=== PATIENT | female | born 1980 | race American Indian/Alaskan Native ===

== ENCOUNTER 2016-04-29 21:24 | Emergency (ER) | payer OTHER ==
[2016-04-29 22:28] LABS: Basophils % (Auto) 0.4 % (0.0-1.8); Eosinophils % (Auto) 0.2 % (0.0-4.3); Hematocrit 37.1 % (30.3-42.9); Hemoglobin 12.3 gm/dl (10.1-14.3); Mean Corpuscular HGB Conc 33 % (30-34); Mean Corpuscular Hemoglobin 30 pg (28-32); Mean Corpuscular Volume 89 fl (79-97); Platelet Count 359 K/mm3 (140-440); Red Blood Count 4.17 M/mm3 (3.65-5.03); Red Cell Distribution Width 12.2 % (13.2-15.2); White Blood Count 8.4 K/mm3 (4.5-11.0)
[2016-04-29 22:54] LABS: Anion Gap 20 mmol/L; BUN/Creatinine Ratio 13.33; Blood Urea Nitrogen 8 mg/dL (7-17); Calcium 9.5 mg/dL (8.4-10.2); Carbon Dioxide 22 mmol/L (22-30); Chloride 98.9 mmol/L (98-107); Creatine Kinase 104 units/L (30-135); Glucose 111 mg/dL (65-100); Potassium 3.9 mmol/L (3.6-5.0); Sodium 137 mmol/L (137-145)
[2016-04-29 22:55] LABS: Creatine Kinase MB < 1.0 ng/mL (0.0-4.0)
[2016-04-30] MEDS ORDERED: NACL 0.9% 1000 ML 1,000 ML IV ONE (02:21)
[2016-04-30 03:08] LABS: INR 1.08 (0.87-1.13)
[2016-04-30] MEDS ORDERED: TORADOL IV ONE (03:56)
[2016-04-30] MEDS ORDERED: TYLENOL PO ONE (03:56)
--- NOTE | 2016-04-30 03:57 | Emergency Department Report ---
ED General Adult HPI - General Chief complaint: Chest Pain Stated complaint: CHEST PAIN / EAR PAIN Time Seen by Provider: 04/30/16 03:45 Source: patient, RN notes reviewed Mode of arrival: Ambulatory Limitations: No Limitations - History of Present Illness Initial comments: This is a 35-year-old female. She is previously unknown to me. Primary care doctor is with [facility]. Has no chronic medical conditions. Does not take control tablets. No history of cocaine use. No recent aspirin use. Patient presents to the ER with right-sided chest wall pain. The pain has been present since morning. It is constant. It does not radiate to the back, arms or neck. There is no vomiting or diaphoresis. Positive cough, positive mucus production, positive shortness of breath, positive right-sided ear pain. Patient has no tinnitus, no vertigo, no change in auditory acuity. -: Gradual Location: chest Radiation: non-radiation Severity scale (0 -10): 4 Quality: aching Consistency: constant Improves with: rest Worsens with: movement Associated Symptoms: chest pain, cough, shortness of breath - Related Data Previous Rx's Medication Instructions Recorded Last Taken Type Ketorolac [Toradol] 10 mg PO Q6H PRN #20 tablet 04/30/16 Unknown Rx Allergies Allergy/AdvReac Type Severity Reaction Status Date / Time codeine Allergy Swelling Verified 04/29/16 21:42 ED Review of Systems ROS: Stated complaint: CHEST PAIN / EAR PAIN Other details as noted in HPI Constitutional: malaise Eyes: denies: vision change ENT: congestion Respiratory: cough, shortness of breath Cardiovascular: chest pain Gastrointestinal: denies: vomiting Genitourinary: denies: urgency, dysuria Musculoskeletal: arthralgia, myalgia Skin: as per HPI Neurological: as per HPI Psychiatric: as per HPI ED Past Medical Hx - Past Medical History Previous Medical History?: No - Surgical History Past Surgical History?: No - Social History Smoking Status: Never Smoker Substance Use Type: None - Medications Home Medications: Home Medications Medication Instructions Recorded Confirmed Last Taken Type Ketorolac [Toradol] 10 mg PO Q6H PRN #20 tablet 04/30/16 Unknown Rx ED Physical Exam - General Limitations: No Limitations General appearance: alert, in no apparent distress - Head Head exam: Present: atraumatic, normocephalic - Eye Eye exam: Present: normal appearance, PERRL, EOMI. Absent: nystagmus - ENT ENT exam: Present: normal exam, normal orophraynx, mucous membranes moist, TM's normal bilaterally, normal external ear exam, other (there is no mastoid tenderness. No vesicles noted.) - Neck Neck exam: Present: normal inspection, full ROM. Absent: tenderness, meningismus - Respiratory Respiratory exam: Present: normal lung sounds bilaterally, chest wall tenderness , other (is reproducible anterior chest wall tenderness. The breast exam is nontender. Breast examination, I am escorted by ER milking machine technician Daniella Jimenez) . Absent: respiratory distress, wheezes, rales, rhonchi, stridor, decreased breath sounds - Cardiovascular Cardiovascular Exam: Present: regular rate, normal rhythm, normal heart sounds. Absent: bradycardia, tachycardia, irregular rhythm, systolic murmur, diastolic murmur, rubs, gallop - GI/Abdominal GI/Abdominal exam: Present: soft, normal bowel sounds. Absent: distended, tenderness, guarding, rebound, rigid, pulsatile mass - Extremities Exam Extremities exam: Present: normal inspection, full ROM, normal capillary refill. Absent: tenderness, pedal edema, joint swelling, calf tenderness - Back Exam Back exam: Present: normal inspection, full ROM. Absent: tenderness, CVA tenderness (R), CVA tenderness (L), muscle spasm, paraspinal tenderness, vertebral tenderness - Neurological Exam Neurological exam: Present: alert, oriented X3, normal gait, other (Extraocular movements intact. Tongue midline. No facial droop. Facial sensation intact to light touch in the V1, V2, V3 distribution bilaterally. 5 and 5 strength in 4 extremities.. Sensation is intact to light touch in 4 extremities.). Absent : motor sensory deficit - Psychiatric Psychiatric exam: Present: normal affect, normal mood - Skin Skin exam: Present: warm, dry, intact, normal color. Absent: rash ED Course Vital Signs 04/29/16 04/30/16 04/30/16 21:42 01:45 01:54 Temperature 99.5 F 98.9 F Pulse Rate 119 H 125 H Respiratory 20 20 Rate Blood Pressure 125/84 122/84 [Right] O2 Sat by Pulse 100 98 98 Oximetry 04/30/16 04/30/16 04/30/16 02:30 03:00 03:30 Temperature Pulse Rate 108 H 100 H 95 H Respiratory 18 16 18 Rate Blood Pressure 113/94 107/60 116/73 [Right] O2 Sat by Pulse 98 98 98 Oximetry 04/30/16 04:00 Temperature 98.8 F Pulse Rate 92 H Respiratory 18 Rate Blood Pressure 124/76 [Right] O2 Sat by Pulse 100 Oximetry - Reevaluation(s) Reevaluation #1: 04/30/16 04:37 Differential diagnosis: Costochondritis, pneumonia, bronchitis, upper respiratory tract infection Assessment and plan: 35-year-old female with clinical bronchitis and viral syndrome. Low-grade temperature and tachycardic initially. Chest pain clinically unlikely to be acute coronary syndrome. She is low risk by RYANNE score, low risk by heart score, has multiple negative cardiac enzymes. Has a pulmonary embolus or DVT risk factors, is low risk by well's criteria. Her tachycardia improved with IV fluids and nonsteroidal pain medication. Her pain improved with nonsteroidal pain medication. Patient at low risk for major illness cardiac event. She will be discharged with nonnarcotic pain medication , instructions to follow up with outpatient primary care. X-ray of the chest unremarkable. ED Medical Decision Making - Lab Data Result diagrams: 04/29/16 21:59 04/29/16 21:59 Vital Signs 04/29/16 04/30/16 04/30/16 21:42 01:45 01:54 Temperature 99.5 F 98.9 F Pulse Rate 119 H 125 H Respiratory 20 20 Rate Blood Pressure 125/84 122/84 [Right] O2 Sat by Pulse 100 98 98 Oximetry 04/30/16 04/30/16 04/30/16 02:30 03:00 03:30 Temperature Pulse Rate 108 H 100 H 95 H Respiratory 18 16 18 Rate Blood Pressure 113/94 107/60 116/73 [Right] O2 Sat by Pulse 98 98 98 Oximetry 04/30/16 04:00 Temperature 98.8 F Pulse Rate 92 H Respiratory 18 Rate Blood Pressure 124/76 [Right] O2 Sat by Pulse 100 Oximetry Lab Results 04/29/16 04/29/16 04/29/16 Range/Units 21:59 21:59 21:59 WBC 8.4 (4.5-11.0) K/mm3 RBC 4.17 (3.65-5.03) M/mm3 Hgb 12.3 (10.1-14.3) gm/dl Hct 37.1 (30.3-42.9) % MCV 89 (79-97) fl MCH 30 (28-32) pg MCHC 33 (30-34) % RDW 12.2 L (13.2-15.2) % Plt Count 359 (140-440) K/mm3 Lymph % (Auto) 5.0 L (13.4-35.0) % [place] % (Auto) 6.0 (0.0-7.3) % Eos % (Auto) 0.2 (0.0-4.3) % Baso % (Auto) 0.4 (0.0-1.8) % Lymph # 0.4 L (1.2-5.4) K/mm3 [place] # 0.5 (0.0-0.8) K/mm3 Eos # 0.0 (0.0-0.4) K/mm3 Baso # 0.0 (0.0-0.1) K/mm3 Seg Neutrophils % 88.4 H (40.0-70.0) % Seg Neutrophils # 7.4 (1.8-7.7) K/mm3 PT (12.2-14.9) Sec. INR (0.87-1.13) Sodium 137 (137-145) mmol/L Potassium 3.9 (3.6-5.0) mmol/L Chloride 98.9 (98-107) mmol/L Carbon Dioxide 22 (22-30) mmol/L Anion Gap 20 mmol/L BUN 8 (7-17) mg/dL Creatinine 0.6 L (0.7-1.2) mg/dL Estimated GFR > 60 ml/min BUN/Creatinine Ratio 13.33 % Glucose 111 H (65-100) mg/dL Calcium 9.5 (8.4-10.2) mg/dL Total Creatine Kinase 104 (30-135) units/L CK-MB (CK-2) < 1.0 (0.0-4.0) ng/mL CK-MB (CK-2) Rel Index 0.9 (0-4) Troponin T < 0.010 (0.00-0.029) ng/mL HCG, Qual Negative (Negative) 04/30/16 04/30/16 Range/Units 00:32 02:33 WBC (4.5-11.0) K/mm3 RBC (3.65-5.03) M/mm3 Hgb (10.1-14.3) gm/dl Hct (30.3-42.9) % MCV (79-97) fl MCH (28-32) pg MCHC (30-34) % RDW (13.2-15.2) % Plt Count (140-440) K/mm3 Lymph % (Auto) (13.4-35.0) % [place] % (Auto) (0.0-7.3) % Eos % (Auto) (0.0-4.3) % Baso % (Auto) (0.0-1.8) % Lymph # (1.2-5.4) K/mm3 [place] # (0.0-0.8) K/mm3 Eos # (0.0-0.4) K/mm3 Baso # (0.0-0.1) K/mm3 Seg Neutrophils % (40.0-70.0) % Seg Neutrophils # (1.8-7.7) K/mm3 PT 13.9 (12.2-14.9) Sec. INR 1.08 (0.87-1.13) Sodium (137-145) mmol/L Potassium (3.6-5.0) mmol/L Chloride (98-107) mmol/L Carbon Dioxide (22-30) mmol/L Anion Gap mmol/L BUN (7-17) mg/dL Creatinine (0.7-1.2) mg/dL Estimated GFR ml/min BUN/Creatinine Ratio % Glucose (65-100) mg/dL Calcium (8.4-10.2) mg/dL Total Creatine Kinase (30-135) units/L CK-MB (CK-2) (0.0-4.0) ng/mL CK-MB (CK-2) Rel Index (0-4) Troponin T < 0.010 (0.00-0.029) ng/mL HCG, Qual (Negative) - EKG Data When compared to previous EKG there are: previous EKG unavailable 04/30/16 04:38 sinus tachycardia, 119 bpm, shortened AK interval, normal axis, not morphologically consistent with STEMI. - Radiology Data Radiology results: pending Critical care attestation.: If time is entered above; I have spent that time in minutes in the direct care of this critically ill patient, excluding procedure time. ED Disposition Clinical Impression: Chest wall pain Disposition: DISCHARGED TO HOME OR SELFCARE Is pt being admited?: No Does the pt Need Aspirin: No Condition: Stable Instructions: Chest Pain (ED), Costochondritis (ED) Additional Instructions: Rest and avoid heavy lifting. Avoid strenuous physical activity. Follow-up with the primary care doctor or validation specialist within the next week. Dr. Bucio is a local validation specialist. Return to the ER right away with new pain, worsening pain, migration of pain, fevers or chills, intractable nausea or vomiting, inability to tolerate liquid feeds. Symptoms most likely coming from inflamed musculature in the anterior chest wall. Referrals: ULISES MILES MD [Primary Care Provider] - 3-5 Days ELENO BUCIO MD [Staff Physician] - 3-5 Days
[2016-04-30 04:06] VITALS: BP 124/76
--- NOTE | 2016-04-30 07:28 | XRay Report ---
ROUTINE CHEST, TWO VIEWS: HISTORY: chest pain. The trachea, heart, mediastinal contour, lung guallpa and bony thorax are unremarkable. IMPRESSION: Unremarkable chest x-ray.
== END 2016-04-30 05:00 | disposition home or self-care (01) ==
LOC: ED 21:24
DX: R07.89 Other chest pain (principal); Z88.6 Allergy status to analgesic agent
CPT/HCPCS: 36415; 71020; 80048; 82550; 82553; 84484; 84703; 85025; 85610; 93005; 93010; 96361; 96374; 99285; J1885; J7030

== ENCOUNTER 2018-11-10 15:07 | Outpatient (CLI) | payer SELFPAY ==
[2018-11-10 15:59] LABS: Bacteria,Urine 1+ /HPF (Negative); Bilirubin,Urine NEG (Negative); Blood,Urine NEG (Negative); Color,Urine Colorless (Yellow); Protein,Urine <15 mg/dL mg/dL (Negative); RBC,Urine < 1.0 /HPF (0.0-6.0); Urobilinogen,Urine < 2.0 mg/dL (<2.0); WBC,Urine < 1.0 /HPF (0.0-6.0)
[2018-11-10] MEDS ORDERED: LACTATED RINGERS 1,000 ML IV SCH (16:00)
[2018-11-10 16:17] LABS: Hematocrit 30.5 % (30.3-42.9); Hemoglobin 10.4 gm/dl (10.1-14.3); Mean Corpuscular HGB Conc 34 % (30-34); Mean Corpuscular Volume 93 fl (79-97); Platelet Count 373 K/mm3 (140-440); Red Blood Count 3.29 M/mm3 (3.65-5.03); Red Cell Distribution Width 12.5 % (13.2-15.2)
[2018-11-10 16:37] LABS: Alanine Aminotransferase 16 units/L (7-56); Albumin 3.7 g/dL (3.9-5); BUN/Creatinine Ratio 12; Blood Urea Nitrogen 6 mg/dL (7-17); Calcium 9.1 mg/dL (8.4-10.2); Hemolysis Index 5
[2018-11-10 17:13] VITALS: BP 131/72
== END 2018-11-10 18:02 | disposition home or self-care (01) ==
LOC: TRG 15:07
PROVIDERS: ATTEND Obstetrics & Gynecology
DX: O9A.212 Injury, poisoning and certain other consequences of external causes complicating pregnancy, second trimester (principal); T67.5XXA Heat exhaustion, unspecified, initial encounter; O60.02 Preterm labor without delivery, second trimester; O13.2 Gestational [pregnancy-induced] hypertension without significant proteinuria, second trimester; Z3A.24 24 weeks gestation of pregnancy
CPT/HCPCS: 36415; 59025; 80053; 81001; 85027; 96360; J7120

== ENCOUNTER 2019-01-24 13:25 | Inpatient (IN) | payer MEDICAID ==
[2019-01-24] MEDS: LACTATED RINGERS 1,000 ML IV SCH (13:30)
[2019-01-24] MEDS ORDERED: DOCUSATE SODIUM 100 MG CAP PO PRN (13:58)
[2019-01-24] MEDS ORDERED: diphenhydrAMINE 25 MG CAP PO PRN (13:58)
[2019-01-24] MEDS ORDERED: ACETAMINOPHEN 325 MG TAB PO PRN (13:58)
[2019-01-24] MEDS ORDERED: SIMETHICONE 80 MG CHEW TAB PO PRN (13:58)
[2019-01-24] MEDS ORDERED: ONDANSETRON 4 MG/2 ML INJ IV PRN (13:58)
[2019-01-24] MEDS ORDERED: BETAMET ACET/BETAMET NA PH 6 MG/ML INJ 5 ML MDV IM SCH (14:00)
[2019-01-24 15:28] LABS: Basophils # (Auto) 0.1 K/mm3 (0.0-0.1); Eosinophils # (Auto) 0.3 K/mm3 (0.0-0.4); Eosinophils % (Auto) 3.4 % (0.0-4.3); Hemoglobin 10.5 gm/dl (10.1-14.3); Lymphocytes % (Auto) 26.4 % (13.4-35.0); Mean Corpuscular HGB Conc 33 % (30-34); Mean Corpuscular Volume 92 fl (79-97); Monocytes # (Auto) 0.5 K/mm3 (0.0-0.8); Monocytes % (Auto) 7.2 % (0.0-7.3); Platelet Count 248 K/mm3 (140-440); Red Blood Count 3.48 M/mm3 (3.65-5.03)
[2019-01-24 15:43] LABS: Alanine Aminotransferase 9 units/L (7-56); Uric Acid 4.4 mg/dL (3.5-7.6)
--- NOTE | 2019-01-24 17:37 | Ultrasound Report ---
Limited OB Ultrasound BPP Umbilical artery evaluation HISTORY: IUP at 35 wks, gestational hypertension. TECHNIQUE: Grayscale and color Doppler imaging performed. COMPARISON: None FINDINGS: There is a single viable intrauterine gestation which is cephalic in presentation with hear t rate of 166 bpm. Overall EGA by ultrasound is 34 weeks and 3 days with estimated delivery date of . Estimated weight is 2373 g. The MARIA EUGENIA is 6 cm. On BPP, the fetus received a score of 2 out of 2 for breathing, movement, posture/tone, and MARIA EUGENIA. Tota l score was 8 out of 8. On evaluation of the umbilical artery, 3 free loops of umbilical cord were evaluated and the heart ra te was 159 bpm. The systolic to diastolic ratio average was 2.4 which is within normal limits. Normal waveforms were present with persistent blood flow during systole. The resistive index averages was 0 .6 with normal persistent waveforms. IMPRESSION: 1. Single viable intrauterine gestation as above. 2. MARIA EUGENIA of 6 cm. 3. Normal BPP. 4. Normal umbilical arterial evaluation. Signer Name: Angelo Mills MD Signed: 01/24/2019 5:32 PM Workstation Name: [id number]
--- NOTE | 2019-01-24 23:49 | History and Physical Report ---
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 Her blood pressure was checked and reported to be 200/100 so she presented here. While in triage, her BP's have been primarily 120-150/80-100s. She denies headache, blurry vision or RUQ pain. She has had care at [facility] since 11 wks with comanagement by [facility] secondary to advanced maternal age, genital herpes without lesion or prodrome presently, Rubella equivocal status, anemia on iron supplementation. She has a history of one prior . Her GBS status is unknown. Past History Past Medical History: hematologic disorders (Anemia ) Past Surgical History: section [employer] History: herpes Social history: no significant social history - Obstetrical History Expected Date of Delivery: 02/27/19 Actual Gestation: 35 Week(s) 1 Day(s) : 2 Para: 1 Hx # Term Pregnancies: 1 Number of Pregnancies: 0 Spontaneous Abortions: 0 Induced : 0 Number of Living Children: 1 Medications and Allergies Allergies Allergy/AdvReac Type Severity Reaction Status Date / Time codeine Allergy Severe Nausea Verified 11/10/18 15:11 Home Medications Medication Instructions Recorded Confirmed Last Taken Type Ketorolac [Toradol] 10 mg PO Q6H PRN #20 tablet 04/30/16 Unknown Rx Active Meds: Active Medications Acetaminophen (Tylenol) 650 mg PO Q4H PRN PRN Reason: Pain MILD(1-3)/Fever >100.5/MURILLO Betamethasone Acet/Betameth SodPhos (Celestone Soluspan) 12 mg IM Q24HR ARMAND Stop: 01/25/19 10:01 Last Admin: 01/24/19 16:51 Dose: 12 mg Documented by: Diphenhydramine HCl (Benadryl) 25 mg PO Q6H PRN PRN Reason: Itching Docusate Sodium (Colace) 100 mg PO Q12H PRN PRN Reason: Constipation Lactated Ringer's (Lactated Ringers) 1,000 mls @ 125 mls/hr IV DIRECT [facility] Last Admin: 01/24/19 13:30 Dose: 125 mls/hr Documented by: Multivitamins/Iron/Calcium ( Vitamin) 1 each PO QDAY [facility] Ondansetron HCl (Zofran) 4 mg IV Q6H PRN PRN Reason: Nausea And Vomiting Simethicone (Mylicon) 80 mg PO Q6H PRN PRN Reason: Gas pain Review of Systems All systems: negative - Vital Signs Vital signs: Vital Signs Pulse BP Pulse Ox 76 158/99 98 01/24/19 13:39 01/24/19 13:39 01/24/19 13:39 Temp Pulse Resp BP Pulse Ox 98.2 F 103 H 18 136/66 95 01/24/19 22:05 01/24/19 23:42 01/24/19 22:05 01/24/19 23:30 01/24/19 23:42 - Physical Exam Breasts: Positive: deferred Cardiovascular: Regular rate Lungs: Positive: Clear to auscultation Abdomen: Positive: soft (gravid ) Uterus: Positive: enlarged (gravid ) Extremities: Positive: normal - Obstetrical FHR: auscultation normal Uterine Contraction Monitor Mode: External Uterine Contraction Pattern: Absent Uterine Tone Measurement Phase: Resting Results Result Diagrams: 01/24/19 14:20 01/24/19 14:20 Abnormal lab results 01/24/19 01/24/19 Range/Units 14:20 14:20 RBC 3.48 L (3.65-5.03) M/mm3 Creatinine 0.6 L (0.7-1.2) mg/dL Lactate Dehydrogenase 224 H (91-180) units/L All other labs normal. Assessment and Plan A: IUP at 35w1d Gestational HTN vs Preclampsia without severe features Advanced Maternal Age Prior section Genital Herpes Rubella Equivocal P: Admit to antepartum service PIH panel 24 hr urine collection Betamethasone course MFM consult in am ultrasound Closely monitor maternal and status
[2019-01-25] MEDS: LACTATED RINGERS 1,000 ML IV SCH ×2 (05:49→13:40)
[2019-01-25] MEDS: PRENATAL VIT27-FE FUMARATE-FOLIC ACID VIT TAB PO SCH ×2 (10:58→15:46)
--- NOTE | 2019-01-25 13:57 | Consultation ---
History of Present Illness Consult date: 01/25/19 Reason for consult: other (Elevated BP) History of present illness: Ms. Huggins is a 38yo, 35.2 weeks ( ISAURO 02/27/19) presenting to [facility] yesterday due to elevated BP's noted while at work ( 200/100). Since she has been hospitalized, blood pressures have been in normal range 110s-130s/70s-80s. She denies visual disturbances, headaches, RUQ pain, and edema. She admits to positive movements. She denies PTL symptoms, leaking of fluid, and bleeding. Past History Past Medical History: hematologic disorders (Anemia ) Past Surgical History: section [employer]OR History: herpes - Obstetrical History : 2 Medications and Allergies Allergies Allergy/AdvReac Type Severity Reaction Status Date / Time codeine Allergy Severe Nausea Verified 11/10/18 15:11 Home Medications Medication Instructions Recorded Confirmed Last Taken Type Ketorolac [Toradol] 10 mg PO Q6H PRN #20 tablet 04/30/16 Unknown Rx Active Meds: Active Medications Acetaminophen (Tylenol) 650 mg PO Q4H PRN PRN Reason: Pain MILD(1-3)/Fever >100.5/MURILLO Diphenhydramine HCl (Benadryl) 25 mg PO Q6H PRN PRN Reason: Itching Docusate Sodium (Colace) 100 mg PO Q12H PRN PRN Reason: Constipation Lactated Ringer's (Lactated Ringers) 1,000 mls @ 125 mls/hr IV DIRECT [facility] Last Admin: 01/25/19 13:40 Dose: 125 mls/hr Documented by: Multivitamins/Iron/Calcium ( Vitamin) 1 each PO QDAY [facility] Last Admin: 01/25/19 10:58 Dose: Not Given Documented by: Ondansetron HCl (Zofran) 4 mg IV Q6H PRN PRN Reason: Nausea And Vomiting Simethicone (Mylicon) 80 mg PO Q6H PRN PRN Reason: Gas pain Review of Systems Eyes: other (denies visual disturbances) Ears, nose, mouth and throat: deferred Cardiovascular: other (denies chest pain, palpitations. Mild pedal edema noted 1+) Respiratory: other (denies sob, wheezing, coughing) Breasts: deferred Gastrointestinal: other (denies constipation, diarrhea, nausea, RUQ pain) Genitourinary: other (denies vaginal bleeding, leaking of fluid, and contractions) Rectal Exam: deferred Neurological: other (denies headaches) - Vital Signs Vital signs: Vital Signs Pulse BP Pulse Ox 76 158/99 98 01/24/19 13:39 01/24/19 13:39 01/24/19 13:39 Temp Pulse Resp BP Pulse Ox 98.2 F 113 H 18 126/83 95 01/24/19 22:05 01/25/19 13:48 01/24/19 22:05 01/25/19 13:46 01/25/19 13:48 - Physical Exam Breasts: Positive: deferred Cardiovascular: Regular rate, Normal S1, Normal S2 Lungs: Positive: Clear to auscultation, Normal air movement Abdomen: Positive: normal appearance, soft, other (gravid) Deep Tendon Reflex Grade: Normal but brisk +3 Results Result Diagrams: 01/24/19 14:20 01/24/19 14:20 Abnormal lab results 01/24/19 01/24/19 Range/Units 14:20 14:20 RBC 3.48 L (3.65-5.03) M/mm3 Creatinine 0.6 L (0.7-1.2) mg/dL Lactate Dehydrogenase 224 H (91-180) units/L All other labs normal. Assessment and Plan A- Maldonado IUP at 35.2 weeks VSS while inpatient Denies Preeclampsia symptoms 24 hour urine in progress Betamethasone x 1 Gestational HTN vs Preclampsia without severe features AMA HSV P- Continue with plan of care Complete 24 hr urine collection Complete Betamethasone With continued stable BPs, possible discharge with [facility] outpatient follow up. With additional questions or concerns, contact [facility] professor of communication . Thank you for your consult.
[2019-01-25] MEDS ORDERED: BETAMET ACET/BETAMET NA PH 6 MG/ML INJ 5 ML MDV IM SCH (17:15)
[2019-01-25 17:32] VITALS: BP 126/84
--- NOTE | 2019-01-25 17:39 | Progress Note ---
Assessment and Plan A: IUP at 35w1d s/p 2 doses betamethasone Preeclampsia without severe features with stable blood pressures Advanced Maternal Age Prior section Genital Herpes Rubella Equivocal P: Discharge home with plans for delivery at 37 wks Pt counseled on signs and symptoms of severe disease Close clinical follow up with primary OB and MFM until delivery Subjective - Subjective Date of service: 01/25/19 Principal diagnosis: IUP at 35w1d, GHTN rule out preeclampsia Interval history: Pt has had mild pressures all night and denies headache, blurry vision or RUQ pain. Her 24 hr urine protein returned 304 mg protein confirming the diagnosis of preeclampsia with mild features. Patient reports: movement normal, no new complaints, no loss of fluid, no vaginal bleeding, no contractions Objective - Vital Signs Vital Signs: Vital Signs - 12hr 01/25/19 01/25/19 01/25/19 05:36 05:37 05:41 Pulse Rate 102 H 104 H 106 H Blood Pressure O2 Sat by Pulse 94 95 94 Oximetry 01/25/19 01/25/19 01/25/19 05:42 05:46 05:47 Pulse Rate 101 H 105 H 102 H Blood Pressure O2 Sat by Pulse 95 94 95 Oximetry 01/25/19 01/25/19 01/25/19 05:52 05:57 06:00 Pulse Rate 94 H 98 H 90 Blood Pressure 127/74 O2 Sat by Pulse 96 96 Oximetry 01/25/19 01/25/19 01/25/19 06:02 06:07 06:12 Pulse Rate 94 H 93 H 94 H Blood Pressure O2 Sat by Pulse 96 96 96 Oximetry 01/25/19 01/25/19 01/25/19 06:17 06:22 06:27 Pulse Rate 90 103 H 107 H Blood Pressure O2 Sat by Pulse 96 96 97 Oximetry 01/25/19 01/25/19 01/25/19 06:31 06:40 06:45 Pulse Rate 88 105 H 106 H Blood Pressure 131/87 O2 Sat by Pulse 97 96 Oximetry 01/25/19 01/25/19 01/25/19 06:50 06:55 07:00 Pulse Rate 104 H 96 H 95 H Blood Pressure O2 Sat by Pulse 95 95 95 Oximetry 01/25/19 01/25/19 01/25/19 07:05 07:10 07:15 Pulse Rate 92 H 100 H 98 H Blood Pressure O2 Sat by Pulse 97 98 97 Oximetry 01/25/19 01/25/19 01/25/19 07:20 07:25 07:30 Pulse Rate 94 H 95 H 89 Blood Pressure O2 Sat by Pulse 97 96 97 Oximetry 01/25/19 01/25/19 01/25/19 07:35 07:40 07:45 Pulse Rate 89 90 89 Blood Pressure O2 Sat by Pulse 97 97 97 Oximetry 01/25/19 01/25/19 01/25/19 07:50 07:55 08:00 Pulse Rate 94 H 94 H 101 H Blood Pressure O2 Sat by Pulse 98 97 97 Oximetry 01/25/19 01/25/19 01/25/19 08:05 08:10 08:15 Pulse Rate 104 H 109 H 105 H Blood Pressure O2 Sat by Pulse 97 97 97 Oximetry 01/25/19 01/25/19 01/25/19 08:20 08:25 08:30 Pulse Rate 106 H 109 H 110 H Blood Pressure O2 Sat by Pulse 98 97 96 Oximetry 01/25/19 01/25/19 01/25/19 08:35 08:48 08:53 Pulse Rate 109 H 110 H 110 H Blood Pressure 143/74 O2 Sat by Pulse 97 95 97 Oximetry 01/25/19 01/25/19 01/25/19 08:58 09:00 09:03 Pulse Rate 108 H 108 H 114 H Blood Pressure 132/82 O2 Sat by Pulse 97 92 97 Oximetry 01/25/19 01/25/19 01/25/19 09:08 09:13 09:18 Pulse Rate 119 H 113 H 111 H Blood Pressure O2 Sat by Pulse 96 96 96 Oximetry 01/25/19 01/25/19 01/25/19 09:23 09:28 09:30 Pulse Rate 111 H 106 H 106 H Blood Pressure 113/57 O2 Sat by Pulse 95 95 Oximetry 01/25/19 01/25/19 01/25/19 09:31 09:33 09:38 Pulse Rate 103 H 102 H 106 H Blood Pressure O2 Sat by Pulse 94 94 94 Oximetry 01/25/19 01/25/19 01/25/19 09:43 09:47 09:48 Pulse Rate 107 H 105 H 101 H Blood Pressure O2 Sat by Pulse 93 94 94 Oximetry 01/25/19 01/25/1901/25/19 09:53 09:58 10:00 Pulse Rate 109 H 105 H 101 H Blood Pressure 118/58 O2 Sat by Pulse 92 93 Oximetry 01/25/19 01/25/19 01/25/19 10:03 10:08 10:13 Pulse Rate 106 H 113 H 104 H Blood Pressure O2 Sat by Pulse 93 93 93 Oximetry 01/25/19 01/25/19 01/25/19 10:15 10:18 10:23 Pulse Rate 97 H 109 H 134 H Blood Pressure O2 Sat by Pulse 93 93 95 Oximetry 01/25/19 01/25/19 01/25/19 10:28 10:30 10:33 Pulse Rate 118 H 115 H 109 H Blood Pressure 118/73 O2 Sat by Pulse 95 96 Oximetry 01/25/19 01/25/19 01/25/19 10:38 10:43 10:48 Pulse Rate 113 H 124 H 117 H Blood Pressure O2 Sat by Pulse 96 97 95 Oximetry 01/25/19 01/25/19 01/25/19 10:53 10:58 11:00 Pulse Rate 117 H 121 H 114 H Blood Pressure 112/77 O2 Sat by Pulse 96 95 Oximetry 01/25/19 01/25/19 01/25/19 11:03 11:08 11:13 Pulse Rate 119 H 114 H 111 H Blood Pressure O2 Sat by Pulse 96 96 96 Oximetry 01/25/19 01/25/19 01/25/19 11:18 11:23 11:28 Pulse Rate 126 H 114 H 117 H Blood Pressure O2 Sat by Pulse 96 97 96 Oximetry 01/25/19 01/25/19 01/25/19 11:30 11:33 11:45 Pulse Rate 116 H 121 H 124 H Blood Pressure 129/82 O2 Sat by Pulse 97 96 Oximetry 01/25/19 01/25/19 01/25/19 11:50 11:55 12:00 Pulse Rate 118 H 118 H 113 H Blood Pressure O2 Sat by Pulse 95 96 96 Oximetry 01/25/19 01/25/19 01/25/19 12:01 12:05 12:10 Pulse Rate 118 H 112 H 118 H Blood Pressure 138/85 O2 Sat by Pulse 96 97 Oximetry 01/25/19 01/25/19 01/25/19 12:15 12:20 12:25 Pulse Rate 116 H 127 H 124 H Blood Pressure O2 Sat by Pulse 97 97 97 Oximetry 01/25/19 01/25/19 01/25/19 12:37 12:42 12:47 Pulse Rate 120 H 118 H 123 H Blood Pressure 131/99 O2 Sat by Pulse 97 96 96 Oximetry 01/25/19 01/25/19 01/25/19 12:52 12:57 13:00 Pulse Rate 116 H 115 H 111 H Blood Pressure 136/80 O2 Sat by Pulse 96 96 Oximetry 01/25/19 01/25/19 01/25/19 13:02 13:07 13:12 Pulse Rate 112 H 112 H 115 H Blood Pressure O2 Sat by Pulse 95 95 95 Oximetry 01/25/19 01/25/19 01/25/19 13:17 13:22 13:27 Pulse Rate 113 H 119 H 116 H Blood Pressure O2 Sat by Pulse 95 97 95 Oximetry 01/25/19 01/25/19 01/25/19 13:33 13:38 13:43 Pulse Rate 126 H 117 H 122 H Blood Pressure O2 Sat by Pulse 96 95 95 Oximetry 01/25/19 01/25/19 01/25/19 13:46 13:48 13:53 Pulse Rate 123 H 113 H 113 H Blood Pressure 126/83 O2 Sat by Pulse 95 96 Oximetry 01/25/19 01/25/19 01/25/19 14:00 14:31 15:01 Pulse Rate 120 H 115 H 109 H Blood Pressure 122/83 123/72 126/73 O2 Sat by Pulse Oximetry 01/25/19 01/25/19 01/25/19 15:23 15:30 16:00 Pulse Rate 105 H 103 H 99 H Blood Pressure 119/61 126/63 O2 Sat by Pulse 96 Oximetry 01/25/19 01/25/19 01/25/19 16:30 17:00 17:30 Pulse Rate 108 H 106 H 110 H Blood Pressure 134/80 133/67 126/84 O2 Sat by Pulse Oximetry - Exam Breasts: deferred Abdomen: Present: soft (gravid ) Uterus: Present: normal (gravid ) FHR: auscultation normal - Labs Labs: Abnormal Labs 01/24/19 01/24/19 01/25/19 14:20 14:20 15:35 RBC 3.48 L Creatinine 0.6 L Lactate Dehydrogenase 224 H Ur Total Protein 24 Hr 304.00 H Urine Total Protein 16 H Laboratory Results - last 24 hr 01/25/19 15:35 Urine Total Volume 1900 Ur Total Protein 24 Hr 304.00 H Urine Total Protein 16 H
--- NOTE | 2019-01-25 17:44 | Discharge Summary ---
Providers - Providers Date of Admission: 01/24/19 13:26 Date of discharge: 01/25/19 Attending physician: LANNY MICHAELS 01/25/19 07:24 Consult to Physician [CONS] Routine Comment: Consulting Provider: ERIC SPEAR Physician Instructions: Reason For Exam: IUP at 35 wks, gestational HTN eval for preeclamp Primary care physician: LANNY MICHAELS Hospitalization Reason for admission: other (elevated blood pressures ) Procedure details: Two doses of betamethasone MFM consult 24 hour urine protein collection Hospital course: Pt was admitted with elevated blood pressures at 35 wks. She underwent a 24 hr urine collection and had laboratories to evaluate for HELLP syndrome which were within normal limits. Her 24 hr urine protein was 304 mg confirming a diagnosis of preeclampsia without severe features necessitating delivery at 37 wks. She did receive 2 doses of betamethasone during this hospitalization. She has been counseled on signs and symptoms of severe disease and will have close clinical follow up in the office and with MFM. Condition at discharge: Stable Disposition: DC-01 TO HOME OR SELFCARE - Discharge Diagnoses (1) Mild preeclampsia Status: Acute Qualifiers: Trimester: third trimester Qualified Code(s): O14.03 - Mild to moderate pre-eclampsia, third trimester (2) AMA (advanced maternal age) multigravida 35+ Status: Acute Qualifiers: Trimester: third trimester Qualified Code(s): O09.523 - Supervision of elderly multigravida, third trimester (3) History of section Status: Acute Plan - Provider Discharge Summary Activity: routine Additional instructions: [] Smoking cessation referral if applicable(refer to patient education folder for contact #) [] Refer to [facility]'s [facility] Booklet Call your doctor immediately for: * Fever > 100.5 * Heavy vaginal bleeding ( >1 pad per hour) * Severe persistent headache * Shortness of breath * Reddened, hot, painful area to leg or breast * Drainage or odor from incision. * Keep incision clean and dry at all times and follow doctor's instructions regarding bathing/showering - Follow up plan Follow up: LANNY MICHAELS MD [Primary Care Provider] - 01/29/19 (Please call to schedule an appt at [facility] and an appt with MFM in the next 7 days )
== END 2019-01-25 18:08 | disposition home or self-care (01) | DRG 781 ==
LOC: TRG 13:25 → LD 13:26
PROVIDERS: ADMIT Obstetrics & Gynecology; ATTEND Obstetrics & Gynecology
DX: O14.03 Mild to moderate pre-eclampsia, third trimester (principal); O99.013 Anemia complicating pregnancy, third trimester; D64.9 Anemia, unspecified; O98.313 Other infections with a predominantly sexual mode of transmission complicating pregnancy, third trimester; A60.00 Herpesviral infection of urogenital system, unspecified; O34.211 Maternal care for low transverse scar from previous cesarean delivery; O98.513 Other viral diseases complicating pregnancy, third trimester; O09.523 Supervision of elderly multigravida, third trimester; Z3A.35 35 weeks gestation of pregnancy
CPT/HCPCS: 36415; 76816; 76819; 76820; 82565; 83615; 84156; 84450; 84460; 84550; 85025; 86850; 86900; 86901; G0378; J0702; J7120

== ENCOUNTER 2019-02-02 17:30 | Inpatient (IN) | payer MEDICAID ==
[2019-02-02 18:25] LABS: Hematocrit 32.4 % (30.3-42.9); Hemoglobin 10.7 gm/dl (10.1-14.3); Mean Corpuscular HGB Conc 33 % (30-34); Mean Corpuscular Volume 92 fl (79-97); Platelet Count 235 K/mm3 (140-440); Red Cell Distribution Width 14.4 % (13.2-15.2)
[2019-02-02 18:37] LABS: Bilirubin,Urine NEG (Negative); Blood,Urine NEG (Negative); Color,Urine Yellow (Yellow); Mucus,Urine FEW /HPF
[2019-02-02 18:38] LABS: Alanine Aminotransferase 12 units/L (7-56); Uric Acid 4.6 mg/dL (3.5-7.6)
[2019-02-02] MEDS ORDERED: LACTATED RINGERS 1,000 ML ONE (20:22)
[2019-02-02] MEDS ORDERED: ACETAMINOPHEN 325 MG TAB PO PRN (20:42)
[2019-02-02] MEDS ORDERED: LACTATED RINGERS 1,000 ML IV SCH (22:00)
[2019-02-03] MEDS ORDERED: OXYTOCIN 20 UNIT/1000ML DRIP 40,000 MILLIUNITS/2,000 ML BAG IV ONE (09:18)
[2019-02-03] MEDS ORDERED: ceFAZolin/Water 2 GM/20 ML 2 GM/20 ML SYRINGE IV ONE (09:18)
--- NOTE | 2019-02-03 09:42 | Anesthesia Consultation ---
Anesthesia Consult and Med Hx Date of service: 02/03/19 - Airway Anesthetic Teeth Evaluation: Good ROM Head & Neck: Adequate Mental/Hyoid Distance: Adequate Mallampati Class: Class II Intubation Access Assessment: Good - Pulmonary Exam CTA: Yes - Cardiac Exam Cardiac Exam: RRR - Pre-Operative Health Status ASA Pre-Surgery Classification: ASA2 Proposed Anesthetic Plan: Spinal - Pulmonary Hx Asthma: No COPD: No Hx Pneumonia: No - Cardiovascular System Hx Hypertension: No - Central Nervous System Hx Seizures: No Hx Psychiatric Problems: No - Endocrine Hx Renal Disease: No Hx End Stage Renal Disease: No Hx Hypothyroidism: No Hx Hyperthyroidism: No - Hematic Hx Anemia: No Hx Sickle Cell Disease: No - Other Systems Hx Alcohol Use: No
--- NOTE | 2019-02-03 09:43 | Anesthesia Day of Surgery ---
Anesthesia Day of Surgery - Day of Surgery Patient Examined: Yes Patient H&P Reviewed: Yes Patient is NPO: Yes
[2019-02-03] MEDS ORDERED: DEXMEDETOMIDINE 200 MCG/2 ML VIAL IV ONE (09:50)
[2019-02-03] MEDS ORDERED: ONDANSETRON 4 MG/2 ML INJ ONE (09:50)
[2019-02-03] MEDS ORDERED: METOCLOPRAMIDE 10 MG/2 ML INJ IV NR (10:00)
[2019-02-03] MEDS ORDERED: FAMOTIDINE 20 MG/2 ML INJ IV SCH (10:00)
[2019-02-03] MEDS ORDERED: HYDROmorphone 1 MG/1 ML INJ IV PRN ×2 (10:00)
[2019-02-03] MEDS ORDERED: fentaNYL-BUPIV 2 MCG/ML-0.125% 200 MCG/100 ML BAG EPIDURAL SCH (10:00)
[2019-02-03] MEDS ORDERED: ONDANSETRON 4 MG/2 ML INJ IV PRN (10:00)
[2019-02-03] MEDS ORDERED: PROMETHAZINE 25 MG TAB PO PRN (10:00)
[2019-02-03] MEDS ORDERED: NALOXONE 0.4 MG/1 ML INJ IV PRN ×2 (10:00→14:18)
[2019-02-03] MEDS ORDERED: PROMETHAZINE 25 MG RECT SUPP PR PRN (10:00)
[2019-02-03] MEDS ORDERED: BICITRA ORAL LIQD 30ML PO ONE (10:00)
[2019-02-03] MEDS ORDERED: CITRIC ACID-SOD CITRATE 500 ML IV ONE (10:18)
--- NOTE | 2019-02-03 10:21 | History and Physical Report ---
History of Present Illness Date of examination: 02/03/19 Date of admission: 02/03/19 08:41 Chief complaint: My blood pressure is high History of present illness: Patient is a 38 year old who presents for delivery via on today. Patient was seen at [facility] yesterday afternoon and has some elevated blood pressures. Pt was admitted last week with a similar issue and was given BMX. The recommendation for today is delivery. Her EDC is 02/27/19 which makes her gestational age 36.4. Past History Past Medical History: hypertension Past Surgical History: section Social history: single, other ([employer]) - Obstetrical History Expected Date of Delivery: 02/27/19 Actual Gestation: 36 Week(s) 4 Day(s) : 2 Number of Living Children: 1 Medications and Allergies Allergies Allergy/AdvReac Type Severity Reaction Status Date / Time codeine Allergy Severe Nausea Verified 11/10/18 15:11 Home Medications Medication Instructions Recorded Confirmed Last Taken Type Ketorolac [Toradol] 10 mg PO Q6H PRN #20 tablet 04/30/16 Unknown Rx Active Meds: Active Medications Acetaminophen (Tylenol) 650 mg PO Q4H PRN PRN Reason: Pain MILD(1-3)/Fever >100.5/MURILLO Famotidine (Pepcid) 20 mg IV QDAY ARMAND Hydromorphone HCl (Dilaudid) 0.5 mg IV Q5M PRN PRN Reason: BREAKTHROUGH PAIN Stop: 02/03/19 15:00 Hydromorphone HCl (Dilaudid) 0.5 mg IV Q4H PRN PRN Reason: breakthrough pain > 7/10 Lactated Ringer's (Lactated Ringers) 1,000 mls @ 125 mls/hr IV DIRECT ARMAND Last Admin: 02/02/19 22:32 Dose: 125 mls/hr Documented by: Fentanyl/Bupivacaine/Sodium Chlor (Fentanyl-Bupiv 2 Mcg/Ml-0.125%) 200 mcg in 100 mls @ 8 mls/hr EPIDURAL TITRATE ARMAND; Protocol Metoclopramide HCl (Reglan) 10 mg IV PREOP NR Stop: 02/03/19 14:00 Naloxone HCl (Naloxone) 0.2 mg IV Q2MIN PRN PRN Reason: Res Rate </= 8 or 02 SAT < 92% Ondansetron HCl (Zofran) 4 mg IV Q8H PRN PRN Reason: Nausea And Vomiting Promethazine HCl (Phenergan) 25 mg PO Q6H PRN PRN Reason: Nausea And Vomiting Promethazine HCl (Phenergan) 25 mg MA Q6H PRN PRN Reason: Nausea And Vomiting Sodium Chloride (Sodium Chloride Flush Syringe 10 Ml) 10 ml IV PRN PRN PRN Reason: flush Review of Systems All systems: negative - Vital Signs Vital signs: Vital Signs Pulse BP 85 177/101 02/02/19 17:45 02/02/19 17:45 Temp Pulse Resp BP Pulse Ox 82 134/75 97 02/03/19 09:20 02/03/19 09:20 02/02/19 20:52 - Physical Exam Breasts: Positive: normal Cardiovascular: Regular rate, Normal S1, Normal S2 Lungs: Positive: Clear to auscultation, Normal air movement Abdomen: Positive: normal appearance, soft, normal bowel sounds. Negative: di stention, tenderness Genitourinary (Female): Positive: normal external genitalia, normal perenium Vulva: both: normal Vagina: Positive: normal moisture. Negative: discharge Cervix: Negative: lesion, discharge Uterus: Positive: normal size, normal contour Adnexa: both: normal Anus/Rectum: Positive: normal perianal skin, heme negative. Negative: rectal mass, hemorrhoids Extremities: Deep Tendon Reflex Grade: Normal +2 - Obstetrical FHR: auscultation normal Results Result Diagrams: 02/02/19 18:03 02/02/19 18:03 Abnormal lab results 02/02/19 02/02/19 Range/Units 18:03 18:03 RBC 3.50 L (3.65-5.03) M/mm3 Creatinine 0.6 L (0.7-1.2) mg/dL Lactate Dehydrogenase 321 H (91-180) units/L All other labs normal. Assessment and Plan IUP at 36.4 weeks here for repeat c -section secondary to AMA and mild preeclampsia. Will admit for delivery. Will order cell saver as precaution because patient refuses blood. Consents signed and placed on chart.
[2019-02-03] MEDS ORDERED: WATER FOR IRRIG STERILE 1,500 ML BOTTLE IR ONE (10:25)
[2019-02-03] MEDS ORDERED: SODIUM CHLORIDE 0.9% IRR 1,500 ML BOTTLE IR ONE (10:25)
[2019-02-03] MEDS ORDERED: PHENYLEPHRINE/NS 1,000 MCG/10 ML SYRINGE (OR USE) IV ONE (10:50)
[2019-02-03] MEDS ORDERED: HYDROmorphone 1 MG/1 ML INJ ONE (11:10)
[2019-02-03] MEDS ORDERED: SODIUM CHLORIDE 0.9% 1000 ML 1,000 ML ONE (11:17)
--- NOTE | 2019-02-03 11:52 | Anesthesia Consultation ---
Anesthesia Consult and Med Hx Date of service: 02/03/19 - Airway Anesthetic Teeth Evaluation: Good ROM Head & Neck: Adequate Mental/Hyoid Distance: Adequate Mallampati Class: Class II Intubation Access Assessment: Good - Pulmonary Exam CTA: Yes - Cardiac Exam Cardiac Exam: RRR - Pre-Operative Health Status ASA Pre-Surgery Classification: ASA2 Proposed Anesthetic Plan: Spinal - Pulmonary Hx Asthma: No COPD: No Hx Pneumonia: No - Cardiovascular System Hx Hypertension: Yes (PIH) - Central Nervous System Hx Seizures: No Hx Psychiatric Problems: No - Endocrine Hx Renal Disease: No Hx End Stage Renal Disease: No Hx Hypothyroidism: No Hx Hyperthyroidism: No - Hematic Hx Anemia: No Hx Sickle Cell Disease: No - Other Systems Hx Alcohol Use: No
--- NOTE | 2019-02-03 12:11 | Procedure Note ---
OB Delivery Note - Delivery Date of Delivery: 02/03/19 Surgeon: MATT KAUR Estimated blood loss: 300cc - Section Preop diagnosis: repeat , other (mild preeclampsia, AMA) Postop diagnosis: same section procedure: repeat low transverse Disposition: PACU Complications: none Narrative: see op report - Infant A at 1 minute: 9 at 5 minutes: 9 Infant Gender: Male (2153 g 4 pounds 11 ounces)
--- NOTE | 2019-02-03 12:13 | Operative Report ---
Operative Report Operative Report: Preoperative diagnosis: Intrauterine at 36-4/7 weeks 2. MIld preeclampsia 3. AMA Postoperative diagnosis: Same Procedure: Repeat low transverse section Surgeon: Dr. Rena Carrasco EBL: 300 Urine output: 200 mL IV fluids: 1100 mL Cell saver: 125cc Findings: Viable male in the vertex presentation. Weight 4 lbs. 11 oz. 2153 g Apgars 9 and 9]. Otherwise normal pelvic anatomy Specimens: None Complications: None Indication: Patient was sent from [facility] with recommendation for delivery secondary to Mild preeclampsia. *Cell saver was used due to the patient's zoroastrian beliefs regarding transfused blood. Procedure: The patient was admitted to the OR with IV running and in place. She was properly identified as herself. She was given spinal anesthesia in the OR without difficulty. She was placed in the dorsal supine position with a leftward tilt. A Mauro catheter was inserted. She was then prepped and draped in the normal sterile fashion. An Allis test was used to confirm adequate anesthesia. Once confirmed, the incision was made with the scalpel and carried to the underlying fascia using the scalpel and the Bovie. The fascia was incised in the midline and incision was extended bilaterally using the curved Lopez scissors. The fascia was then dissected from the underlying rectus muscles in a series of sharp and blunt dissection using the Lopez scissors. Muscles were in the in the midline sharply using Metzenbaum scissors and the peritoneum was entered into sharply using the Lopez scissors. A bladder blade was then placed into the incision to protect the bladder. Following this the bladder flap was created. Hysterotomy incision was then made in the scalpel. Upon uterine entry, the amniotic sac was ruptured for clear fluid. The infant was noted to be in the vertex presentation. His mouth and nose were suctioned on the field. The cord was clamped and cut and he was handed to the waiting NICU personnel. The uterus was then exteriorized and cleared of all clots and debris. The hysterotomy incision was then closed in a running locked fashion using 0 Vicryl. The abdomen was then copiously irrigated with warm normal saline. Following this the uterus was replaced into the abdominal cavity. At this point the muscles were reapproximated in the midline using individual sutures of 0 Vicryl. Following this the fascia was closed in a running fashion using 0 Vicryl. Tissue was then copiously irrigated. Skin was closed in a running fashion using 3-0 Monocryl. The sponge lap needle and instrument counts were correct 2. The patient tolerated the procedure well. She was taken to recovery in stable condition.
[2019-02-03] MEDS ORDERED: ceFAZolin/Water 2 GM/20 ML 2 GM/20 ML SYRINGE IV NR (13:00)
[2019-02-03] MEDS ORDERED: OXYTOCIN 20 UNIT/1000ML DRIP 20 UNITS/1,000 ML BAG IV SCH ×2 (13:00→14:18)
[2019-02-03] MEDS ORDERED: LACTATED RINGERS 1,000 ML IV SCH (13:00)
[2019-02-03] MEDS ORDERED: D5W/LACTATED RINGERS 1,000 ML IV SCH (14:18)
[2019-02-03] MEDS ORDERED: SIMETHICONE 80 MG CHEW TAB PO PRN (14:18)
[2019-02-03] MEDS ORDERED: WITCH HAZEL/ GLYCERIN PAD TP PRN (14:18)
[2019-02-03] MEDS ORDERED: LANOLIN/ZINC/DIMETHICONE (LANSINOH) 7 GM TP PRN (14:18)
[2019-02-03] MEDS ORDERED: MAGNESIUM HYDROXIDE (MOM) ORAL LIQD UDC PO PRN (14:18)
[2019-02-03] MEDS: oxyCODONE /ACETAMINOPHEN 5-325MG TAB PO PRN (16:38)
[2019-02-04] MEDS: oxyCODONE /ACETAMINOPHEN 5-325MG TAB PO PRN ×4 (00:34→23:52)
[2019-02-04 03:17] LABS: Hematocrit 28.2 % (30.3-42.9); Hemoglobin 9.3 gm/dl (10.1-14.3)
[2019-02-04] MEDS: IBUPROFEN 800 MG TAB PO PRN (04:58)
[2019-02-04] MEDS: FERROUS SULFATE 325 MG TAB PO SCH (08:35)
[2019-02-04] MEDS: PRENATAL VIT27-FE FUMARATE-FOLIC ACID VIT TAB PO SCH (08:35)
--- NOTE | 2019-02-04 13:07 | Progress Note ---
Assessment and Plan POD 1 s/p ltcs. Doing well. Continue routine care. Encourage ambulation. Subjective - Subjective Date of service: 02/04/19 Interval history: Patient is a 38 year old who presents for delivery via on today. Patient was seen at [facility] yesterday afternoon and has some elevated blood pressures. Pt was admitted last week with a similar issue and was given BMX. The recommendation for today is delivery. Her EDC is 02/27/19 which makes her gestational age 36.4. Patient reports: appetite normal, voiding normally, pain well controlled, ambulating normally : doing well Objective - Vital Signs Latest vital signs: Vital Signs Temp Pulse Resp BP BP Pulse Ox 02/04/19 08:25 98.7 F 99 H 20 159/87 02/04/19 06:31 89 18 157/79 96 02/04/19 04:34 98.6 F 94 H 18 161/91 95 02/04/19 01:48 98.8 F 104 H 18 152/88 96 02/03/19 20:59 98.5 F 93 H 18 138/86 96 02/03/19 17:00 98.1 F 77 20 131/80 02/03/19 13:19 68 158/80 98 Intake and Output 02/03/19 02/04/19 02/04/19 22:59 06:59 14:59 Intake Total 320 240 120 Output Total 600 1950 300 Balance -280 -1710 -180 Intake: Oral 320 120 Intake, Free Water 240 Output: Urine 600 1950 300 Indwelling Catheter 600 1600 Void 350 300 Other: Total, Intake Amount 320 120 Total, Output Amount 600 350 300 - Exam Breasts: Present: deferred Cardiovascular: Present: Regular rate, Normal S1, Normal S2 Lungs: Present: Clear to auscultation, Normal air movement Abdomen: Present: normal appearance, soft, normal bowel sounds Uterus: Present: normal, firm Extremities: Present: normal Incision: Present: normal, dry, intact - Labs Labs: Abnormal lab results 02/04/19 Range/Units 02:46 Hgb 9.3 L (10.1-14.3) gm/dl Hct 28.2 L (30.3-42.9) %
[2019-02-05] MEDS: IBUPROFEN 800 MG TAB PO PRN (06:15)
--- NOTE | 2019-02-05 08:16 | Progress Note ---
Assessment and Plan - Patient Problems (1) Mild preeclampsia Current Visit: No Status: Acute Qualifiers: Trimester: third trimester Qualified Code(s): O14.03 - Mild to moderate pre-eclampsia, third trimester Plan to address problem: will initiate procardia and monitor blood pressure discharge home tomorrrow if remains stable Subjective - Subjective Date of service: 02/05/19 Interval history: Patient reports feeling well. Blood pressures have been labile and elevated. She denies headache or scotomata. Patient is tolerating regular diet Patient reports: appetite normal, voiding normally, dizzy ambulation : doing well Objective - Vital Signs Latest vital signs: Vital Signs Temp Pulse Resp BP BP Pulse Ox 02/05/19 00:41 98.5 F 100 H 20 139/78 95 02/04/19 15:50 98 F 98 H 20 139/68 02/04/19 08:25 98.7 F 99 H 20 159/87 Intake and Output 02/04/19 02/05/19 02/05/19 22:59 06:59 14:59 Intake Total 360 Output Total 500 Balance -140 Intake: Oral 360 Output: Urine 500 Void 500 Other: Total, Intake Amount 120 Total, Output Amount 500 # Voids Void 1 1 - Exam Abdomen: Present: normal appearance
[2019-02-05] MEDS: NIFEdipine XL 60 MG TAB PO SCH (08:26)
[2019-02-05] MEDS: PRENATAL VIT27-FE FUMARATE-FOLIC ACID VIT TAB PO SCH (09:26)
[2019-02-05] MEDS: FERROUS SULFATE 325 MG TAB PO SCH (09:26)
[2019-02-05] MEDS: oxyCODONE /ACETAMINOPHEN 5-325MG TAB PO PRN ×2 (15:59→22:20)
[2019-02-06] MEDS: IBUPROFEN 800 MG TAB PO PRN (02:32)
--- NOTE | 2019-02-06 07:52 | Progress Note ---
Assessment and Plan A: POD#3 s/p repeat section, Asymptomatic anemia, Severe Preeclamspia P: Plan to discharge home with follow up in one week Subjective - Subjective Date of service: 02/06/19 Principal diagnosis: Severe Preeclampsia, s/p repeat section at 36 wks Interval history: No issues overnight. Blood pressure improved on Procardia Xl 60 mg. Patient reports: appetite normal, voiding normally, pain well controlled, flatus, ambulating normally, no bowel movement : doing well Objective - Vital Signs Latest vital signs: Vital Signs Temp Pulse Resp BP BP Pulse Ox 02/06/19 04:37 98.3 F 102 H 18 138/83 96 02/06/19 02:32 20 02/06/19 02:31 98.4 F 95 H 18 137/77 94 02/05/19 22:20 20 02/05/19 21:51 98.0 F 111 H 18 133/81 95 02/05/19 16:07 98.4 F 110 H 20 155/91 94 02/05/19 13:50 109 H 16 131/79 131/79 95 02/05/19 12:16 97.8 F 99 H 20 171/99 95 02/05/19 08:00 97.9 F 95 H 20 152/84 97 Intake and Output 02/05/19 02/06/19 02/06/19 22:59 06:59 14:59 Intake Total 240 Balance 240 Intake: Oral 240 Other: Total, Intake Amount 240 # Voids Void 1 - Exam Breasts: Present: deferred Cardiovascular: Present: Regular rate Lungs: Present: Clear to auscultation Abdomen: Present: soft Uterus: Present: fundal height at umbilicus Extremities: Present: normal Incision: Present: intact
--- NOTE | 2019-02-06 07:57 | Discharge Summary ---
Providers - Providers Date of Admission: 02/03/19 08:41 Date of discharge: 02/06/19 Attending physician: CHI SANCHEZ MD Primary care physician: LANNY MICHAELS Hospitalization Reason for admission: section, other (Severe Preeclampsia ) Delivery: Procedure: section, repeat low transverse Procedure details: Please see operative report. Other procedures: none complications: none Discharge diagnosis: delivery [place] baby: male Hospital course: Pt was admitted for repeat section at 36 wks secondary to severe preeclampsia and prior x 1. Her postoperative course was uncomplicated and she met discharge criteria on POD#3. She will follow up in 1 week for a blood pressure check. Condition at discharge: Stable Disposition: - TO HOME OR SELFCARE - Discharge Diagnoses (1) delivery Status: Acute (2) Severe preeclampsia Status: Acute (3) Anemia Status: Acute Qualifiers: Anemia type: unspecified type Qualified Code(s): D64.9 - Anemia, unspecified (4) AMA (advanced maternal age) multigravida 35+ Status: Acute Qualifiers: Trimester: third trimester Qualified Code(s): O09.523 - Supervision of elderly multigravida, third trimester (5) History of section Status: Acute Plan - Discharge Medications Prescriptions: Docusate Sodium [Colace] 100 mg PO BID PRN #60 capsule PRN Reason: Constipation Ibuprofen [Motrin] 800 mg PO Q8HR PRN #60 tablet PRN Reason: Pain, Moderate (4-6) oxyCODONE /ACETAMINOPHEN [Percocet 5/325] 1 tab PO Q6HR PRN #30 tablet PRN Reason: Pain NIFEdipine XL [Procardia Xl] 60 mg PO QDAY #30 tablet - Provider Discharge Summary Activity: routine, no sex for 6 weeks, no heavy lifting 4 weeks, no strenuous exercise Diet: routine Instructions: routine Additional instructions: [] Smoking cessation referral if applicable(refer to patient education folder for contact #) [] Refer to [facility] Booklet Call your doctor immediately for: * Fever > 100.5 * Heavy vaginal bleeding ( >1 pad per hour) * Severe persistent headache * Shortness of breath * Reddened, hot, painful area to leg or breast * Drainage or odor from incision. * Keep incision clean and dry at all times and follow doctor's instructions regarding bathing/showering - Follow up plan Follow up: LANNY MICHAELS MD [Primary Care Provider] - 7 Days Forms: [facility] Discharge Summary
[2019-02-06] MEDS: FERROUS SULFATE 325 MG TAB PO SCH (09:15)
[2019-02-06] MEDS: PRENATAL VIT27-FE FUMARATE-FOLIC ACID VIT TAB PO SCH ×2 (09:15→09:17)
[2019-02-06] MEDS: NIFEdipine XL 60 MG TAB PO SCH (09:15)
[2019-02-06 13:08] VITALS: BP 144/88
== END 2019-02-06 15:00 | disposition home or self-care (01) | DRG 765 ==
LOC: TRG 17:30 → LD 23:55 → TRG 02-03 08:40 → LD 02-03 08:41 → OB 02-03 13:40
PROVIDERS: ADMIT Obstetrics & Gynecology; ATTEND Obstetrics & Gynecology
PROC: 10D00Z1 Extraction of Products of Conception, Low, Open Approach (ICD-10-PCS; principal; 2019-02-03)
DX: O34.211 Maternal care for low transverse scar from previous cesarean delivery (principal); O60.14X0 Preterm labor third trimester with preterm delivery third trimester, not applicable or unspecified; O14.14 Severe pre-eclampsia complicating childbirth; O99.02 Anemia complicating childbirth; Z3A.36 36 weeks gestation of pregnancy; Z37.0 Single live birth; Z88.5 Allergy status to narcotic agent; Z79.899 Other long term (current) drug therapy
CPT/HCPCS: 36415; 81001; 82565; 83615; 84450; 84460; 84550; 85014; 85018; 85027; 86592; 86850; 86900; 86901; G0378; J0690; J1170; J2370; J2405; J2590; J2765; J3490; J7030; J7120; J7121